=== PATIENT | female | born 1985 | race Caucasian/White ===

== ENCOUNTER 2017-03-02 03:41 | Emergency (ER) | payer BC ==
[~2017-03-02] VITALS: Ht 165.1 cm; Wt 84.6 kg
[2017-03-02 03:45] VITALS: BP 132/85; TEMP 98.8
[2017-03-02 04:12] LABS: COLLECTION METHOD CLEAN CATCH
[2017-03-02 04:18] LABS: MUCOUS Present /lpf; PH 6 (5-8); SQUAMOUS EPITHELIAL 0-2 /hpf; URINE APPEARANCE Clear; URINE BACTERIA Rare /hpf; URINE BILIRUBIN Negative (NEGATIVE); URINE BLOOD 1+ (NEGATIVE); URINE COLOR Amber; URINE GLUCOSE Negative (NEGATIVE); URINE KETONE Negative (NEGATIVE); URINE LEUKOCYTE ESTERASE 2+ (NEGATIVE); URINE PROTEIN(semi-quant) Negative (NEGATIVE)
[2017-03-02 04:19] LABS: URINE WBC 20-50 /hpf
[2017-03-02] MEDS ORDERED: ZOFRAN 4MG T4 MG/TAB PO (04:28)
[2017-03-02] MEDS ORDERED: OMNICEF 300MG300 MG PO (04:28)
[2017-03-02 04:41] VITALS: PULSE 74
== END 2017-03-02 04:44 | disposition home or self-care (01) ==
LOC: COL.ER 03:41
PROVIDERS: Emergency Medicine
DX: N39.0 Urinary tract infection, site not specified (principal); N12 Tubulo-interstitial nephritis, not specified as acute or chronic; G50.0 Trigeminal neuralgia; Z90.49 Acquired absence of other specified parts of digestive tract

== ENCOUNTER 2017-03-30 14:04 | Day surgery (SDC) | payer BC ==
[~2017-03-30] VITALS: Ht 152.4 cm; Wt 82.7 kg
[~2017-03-30 14:04] MED LIST: OMNICEF 300MG300 MG PO; ZOFRAN 4MG T4 MG/TAB PO
[2017-03-30 15:14] VITALS: BP 123/76; PULSE 94; TEMP 98.1
[2017-03-30] MEDS ORDERED: NORCO 325 MG-51 TAB PO (15:27)
[2017-03-31 00:55] VITALS: BP 123/68; PULSE 97; TEMP 98.2
[2017-03-31 04:00] VITALS: BP 125/67; PULSE 96; TEMP 97.5
[2017-03-31 07:23] VITALS: BP 114/69; PULSE 74; TEMP 97.7
== END 2017-03-31 11:58 | disposition home or self-care (01) ==
LOC: SDCO 14:04 → SURG 20:21 → SDCO 03-31 11:58
DX: N20.0 Calculus of kidney (principal); Z90.49 Acquired absence of other specified parts of digestive tract; Z86.73 Personal history of transient ischemic attack (TIA), and cerebral infarction without residual deficits
CPT/HCPCS: OP; C1769; C2617; J0690; J1170; J1885; J2405; J2704; J3010; J7030; J7120; Q9967

== ENCOUNTER 2017-10-24 07:52 | Outpatient (RCR) | payer OTHER ==
[~2017-10-24 07:52] MED LIST changes: +NORCO 325 MG-51 TAB PO
== END 2018-01-07 | disposition home or self-care (01) ==
LOC: WSOH
DX: G56.02 Carpal tunnel syndrome, left upper limb (principal); X50.3XXA Overexertion from repetitive movements, initial encounter; Y99.0 Civilian activity done for income or pay; Z79.899 Other long term (current) drug therapy
CPT/HCPCS: 24091; A6549

== ENCOUNTER → 2018-04-19 | Outpatient (CLI) | payer BC | LOC: COL.RAD 14:10 | DX: R10.31 Right lower quadrant pain (principal); Z87.42 Personal history of other diseases of the female genital tract ==

== ENCOUNTER → 2020-01-23 | Outpatient (CLI) | payer BC | LOC: COL.RAD 11:54 | DX: N94.10 Unspecified dyspareunia (principal); N94.6 Dysmenorrhea, unspecified ==

== ENCOUNTER → 2022-03-10 | Outpatient (CLI) | payer BC | LOC: DIA.ED 08:29 | DX: O24.419 Gestational diabetes mellitus in pregnancy, unspecified control (principal); Z79.4 Long term (current) use of insulin | CPT/HCPCS: G0108 ==

== ENCOUNTER → 2022-07-28 | Outpatient (CLI) | payer BC ==
[~2022-07-28] MED LIST changes: +IBU800 M1 PO; +LANTUS SOLOS100 U/ML SQ; +PRENATAL; +PRILOSEC 20MG20 MG PO; +ROXICODONE 55 MG/TAB PO; +TUMS500 MG; +ZOLOFT 25MG25 MG PO
== END ==
LOC: COL.RAD 05:23
DX: L02.91 Cutaneous abscess, unspecified (principal)